=== PATIENT | male | born 1965 | race Caucasian/White ===

== ENCOUNTER 2017-12-08 13:30 | Emergency (ER) | payer MEDICAID ==
[~2017-12-08] VITALS: Ht 180.3 cm; Wt 65.0 kg
[~2017-12-08 13:30] MED LIST: ASPI-144; CEPH250T PO; CLIN-26 PO; CYCL-1 PO; GABA-532 PO; HYDR-565 PO; IBUP-1986 PO; MELO-100 PO; NAPR-56 PO; ONDA8TAB9 PO; TRAM50TA2 PO
[2017-12-08] MEDS ORDERED: dexamethasone sod phosphate 10mg/ml inj IM STA (13:53)
[2017-12-08] MEDS ORDERED: NAPR-56 PO (13:55)
[2017-12-08] MEDS ORDERED: orphenadrine citrate 60mg/2ml inj. IM ONE (13:55)
[2017-12-08] MEDS ORDERED: ketorolac trometh inj. 60 MG/2 ML VIAL IM ONE (13:55)
[2017-12-08] MEDS ORDERED: CYCL-1 PO (13:55)
[2017-12-08] MEDS ORDERED: METH4TAB3 PO (13:55)
[2017-12-08 14:14] VITALS: BP 129/85
== END 2017-12-08 14:15 | disposition home or self-care (01) ==
LOC: ER 13:31
DX: M54.32 Sciatica, left side (principal); F15.10 Other stimulant abuse, uncomplicated; G89.29 Other chronic pain; Z88.0 Allergy status to penicillin; Z88.5 Allergy status to narcotic agent; Z79.899 Other long term (current) drug therapy; Z79.82 Long term (current) use of aspirin
CPT/HCPCS: 96372; 99284; J1100; J1885; J2360

== ENCOUNTER 2018-06-26 22:45 | Emergency (ER) | payer MEDICAID ==
[~2018-06-26] VITALS: Ht 180.3 cm; Wt 62.0 kg
[~2018-06-26 22:45] MED LIST changes: -CEPH250T PO; +METH4TAB3 PO
[2018-06-26 22:50] VITALS: BP 170/115
[2018-06-26 23:29] LABS: URINE AMPHETAMINE SCREEN POSITIVE (Neg); URINE BARBITUATE SCREEN NEGATIVE (Neg); URINE BENZODIAZEPINES SCREEN NEGATIVE (Neg); URINE CANNABINOID SCREEN NEGATIVE (Neg); URINE COCAINE SCREEN NEGATIVE (Neg); URINE METHADONE SCREEN NEGATIVE (Neg); URINE OPIATE SCREEN NEGATIVE (Neg); URINE PHENCYCLIDINE SCREEN NEGATIVE (Neg)
[2018-06-26 23:37] LABS: CLARITY,URINE CLEAR (Clear); COLOR,URINE YELLOW (Yellow); GLUCOSE, URINE NEGATIVE (Neg); KETONES,URINE NEGATIVE (Neg); LEUKOCYTE ESTERASE ,URINE NEGATIVE (Neg); NITRITES, URINE NEGATIVE (Neg); OCCULT BLOOD,URINE NEGATIVE (Neg); PROTEIN,URINE NEGATIVE (Neg); UROBILINOGEN,URINE 0.2 E.U/dL (0.2-1.0)
[2018-06-26 23:39] LABS: UA COLLECTION TYPE CLN CATCH MIDSTREAM
== END 2018-06-27 00:11 | disposition left against medical advice (07) ==
LOC: ER 22:46
DX: M54.5 Low back pain (principal); Z88.0 Allergy status to penicillin
CPT/HCPCS: 80305; 81003; 99281

== ENCOUNTER 2018-08-16 22:42 | Emergency (ER) | payer MEDICAID ==
[~2018-08-16] VITALS: Ht 180.3 cm; Wt 66.3 kg
[2018-08-16] MEDS ORDERED: SULF1TAB49 PO (23:09)
[2018-08-16] MEDS ORDERED: HYDROcodone/acetaminophen 10/325mg tab PO ONE (23:10)
[2018-08-16] MEDS ORDERED: ketorolac trometh inj. 60 MG/2 ML VIAL IM ONE (23:10)
[2018-08-16 23:21] VITALS: BP 158/105
== END 2018-08-16 23:28 | disposition home or self-care (01) ==
LOC: ER 22:43
DX: L08.9 Local infection of the skin and subcutaneous tissue, unspecified (principal); M54.5 Low back pain; G89.29 Other chronic pain; F15.90 Other stimulant use, unspecified, uncomplicated; Z86.14 Personal history of Methicillin resistant Staphylococcus aureus infection; Z88.0 Allergy status to penicillin; Z79.82 Long term (current) use of aspirin; Z79.899 Other long term (current) drug therapy
CPT/HCPCS: 96372; 99283; J1885

== ENCOUNTER 2020-02-03 22:20 | Emergency (ER) | payer MEDICAID ==
[~2020-02-03] VITALS: Ht 180.3 cm; Wt 65.0 kg
[~2020-02-03 22:20] MED LIST changes: +HYDR-4353 PO; -HYDR-565 PO
[2020-02-03] MEDS ORDERED: HYDROcodone/acetaminophen 10/325mg tab PO ONE (23:05)
[2020-02-03] MEDS ORDERED: HYDR-4353 PO (23:31)
[2020-02-03 23:42] VITALS: BP 155/107
== END 2020-02-03 23:34 | disposition home or self-care (01) ==
LOC: ER 22:20
DX: R07.81 Pleurodynia (principal); G89.29 Other chronic pain; F17.200 Nicotine dependence, unspecified, uncomplicated; Z72.89 Other problems related to lifestyle; Z88.0 Allergy status to penicillin; Z79.82 Long term (current) use of aspirin; Z79.2 Long term (current) use of antibiotics; Z79.1 Long term (current) use of non-steroidal anti-inflammatories (NSAID); Z79.899 Other long term (current) drug therapy; Z86.14 Personal history of Methicillin resistant Staphylococcus aureus infection
CPT/HCPCS: 71046; 99283

== ENCOUNTER 2022-06-15 14:50 | Emergency (ER) | payer MEDICAID ==
[~2022-06-15] VITALS: Ht 177.8 cm; Wt 60.0 kg
[2022-06-15 14:59] VITALS: BP 13/94
== END 2022-06-15 18:17 | disposition left against medical advice (07) ==
LOC: ER 14:50
DX: S81.819A Laceration without foreign body, unspecified lower leg, initial encounter (principal); Z53.21 Procedure and treatment not carried out due to patient leaving prior to being seen by health care provider; W29.3XXA Contact with powered garden and outdoor hand tools and machinery, initial encounter; Y93.89 Activity, other specified; Y92.89 Other specified places as the place of occurrence of the external cause; Y99.8 Other external cause status

== ENCOUNTER 2022-10-01 13:27 | Emergency (ER) | payer MEDICAID ==
[~2022-10-01] VITALS: Ht 177.8 cm; Wt 61.4 kg
[2022-10-01] MEDS ORDERED: HYDROcodone/acetaminophen 5mg/325mg tablet PO ONE (14:30)
[2022-10-01] MEDS ORDERED: HYDR-3965 PO (15:37)
[2022-10-01 15:52] VITALS: BP 135/76
== END 2022-10-01 15:53 | disposition home or self-care (01) ==
LOC: ER 13:28
DX: R07.81 Pleurodynia (principal); M25.552 Pain in left hip; G89.29 Other chronic pain; M54.9 Dorsalgia, unspecified; Z86.14 Personal history of Methicillin resistant Staphylococcus aureus infection; Z88.0 Allergy status to penicillin; Z79.899 Other long term (current) drug therapy; Z79.82 Long term (current) use of aspirin; V19.9XXA Pedal cyclist (driver) (passenger) injured in unspecified traffic accident, initial encounter; Y93.89 Activity, other specified; Y92.89 Other specified places as the place of occurrence of the external cause; Y99.8 Other external cause status
CPT/HCPCS: 71101; 73502; 99284

== ENCOUNTER 2022-12-29 01:47 | Emergency (ER) | payer MEDICAID ==
[~2022-12-29] VITALS: Ht 180.3 cm; Wt 63.6 kg
[2022-12-29] MEDS ORDERED: LIDOcaine 5% patch TP ONE (02:45)
[2022-12-29] MEDS ORDERED: morphine 4 MG/ML inj SYRINge IM ONE (02:45)
[2022-12-29] MEDS ORDERED: ketorolac trometh inj. 60 MG/2 ML VIAL IM ONE (02:45)
[2022-12-29] MEDS ORDERED: acetaminophen 325mg tablet PO ONE (02:45)
[2022-12-29] MEDS ORDERED: orphenadrine citrate 60mg/2ml inj. IM ONE (02:45)
[2022-12-29] MEDS ORDERED: ondansetron 4mg rapidly disintigrating tab PO ONE (02:45)
[2022-12-29 03:35] VITALS: BP 143/97
== END 2022-12-29 03:39 | disposition home or self-care (01) ==
LOC: ER 01:47
DX: M54.50 Low back pain, unspecified (principal); G89.29 Other chronic pain; F17.200 Nicotine dependence, unspecified, uncomplicated; Z88.0 Allergy status to penicillin
CPT/HCPCS: 93005; 96372; 99284; J1885; J2270; J2360